=== PATIENT | female | born 1955 | race Caucasian/White ===

== ENCOUNTER 2020-02-12 17:05 | Emergency (ER) | payer MEDICARE, OTHER ==
[~2020-02-12] VITALS: Ht 157.5 cm; Wt 99.8 kg
[~2020-02-12 17:05] MED LIST: ALBUTEROL2.5 MG/0.5; CITALOPRAM HBR20 MG GT; COREG25 MG GT; CRESTOR5 MG GT; DIOVAN160 MG GT; LEVEMIR100 UNIT/1 SQ; METFORMIN HCL500 MG GT; NUVIGIL50 MG GT
== END 2020-02-12 18:57 | disposition home or self-care (01) ==
LOC: ER 17:15
DX: Z43.1 Encounter for attention to gastrostomy (principal); G81.94 Hemiplegia, unspecified affecting left nondominant side
CPT/HCPCS: 99282

== ENCOUNTER 2022-09-08 19:52 | Inpatient (IN) | payer MEDICARE, OTHER ==
[~2022-09-08] VITALS: Ht 157.5 cm; Wt 99.8 kg
[~2022-09-08 19:52] MED LIST changes: -ACETAMINOPHEN 1000 MG/100 ML 100 ML IV ONE; -CEFEPIME HCL 1 GM VIAL ONE; -DEXAMETHASONE SOD PHOS INJ 4 MG/ML SDV ONE; -DIFLUCAN200 MG PO; -DIPHENHYDRAMINE HCL INJ 50 MG/ML VIAL ONE; -FENTANYL CITRATE/PF 100MCG/2 ML INJ ONE; -KETOROLAC TROMETHAMINE 30 MG/ML VIAL ONE; -LEVEMIR100 UNIT/1; -LIDOCAINE HCL 2% LOCAL INJ 5 ML SDV VIAL INJ ONE; -NUVIGIL150 MG; -NUVIGIL150 MG GT; -ONDANSETRON HCL INJ 2MG/ML 2ML 2 MG/ML VIAL ONE; -POVIDONE IODINE 0.05% 0.05 % ML PO ONE; -PROPOFOL IV EMULSION 10 MG/ML 20 ML VIAL ONE; -SEVOFLURANE INHAL SOLN 250 ML PEN BTL ONE
[2022-09-08] MEDS ORDERED: SODIUM CHLORIDE 0.9% 1000ML 1,000 ML IV STA ×2 (19:54→20:34)
[2022-09-08] MEDS ORDERED: MEROPENEM 1 GM VIAL ONE (20:22)
[2022-09-08] MEDS ORDERED: SODIUM CHLORIDE 0.9% 1000ML 1,000 ML ONE ×2 (20:22→21:11)
[2022-09-08] MEDS ORDERED: SODIUM CHLORIDE 0.9% 100 ML ONE (20:22)
[2022-09-08 20:24] LABS: BASOPHILS # (AUTO) 0.1 (0.0-0.1); BASOPHILS % 0.4 % (0.0-1.0); EOSINOPHILS % 0.1 % (0.0-6.0); HEMOGLOBIN 11.5 g/dL (12.0-16.0); LYMPHOCYTES # (AUTO) 0.1 (1.0-3.2); LYMPHOCYTES % 0.5 % (18.0-39.1); MEAN CORPUSCULAR HEMOGLOBIN 27.9 pg (28-32); MEAN CORPUSCULAR HGB CONC 31.1 g/dL (31-35); MEAN CORPUSCULAR VOLUME 89.8 fL (81-99); MONOCYTES # (AUTO) 0.4 (0.2-0.8); MONOCYTES % 2.2 % (4.4-11.3); NEUTROPHILS # (AUTO) 16.5 (2.1-6.9); PLATELET COUNT 188 x10e3/uL (140-360); RED BLOOD COUNT 4.12 x10e6/uL (3.6-5.1)
[2022-09-08] MEDS: MEROPENEM 1 GM in SODIUM CHLORIDE 0.9% 100 ML IV SCH (20:26)
[2022-09-08 20:42] LABS: ALBUMIN 2.6 g/dL (3.5-5.0); ALBUMIN/GLOBULIN RATIO 0.7 (0.8-2.0); ANION GAP 14.3 mmol/L (8-16); CALCIUM 8.7 mg/dL (8.4-10.2); CREATININE, SERUM 0.78 mg/dL (0.57-1.11); POTASSIUM 4.3 mmol/L (3.5-5.1)
[2022-09-08] MEDS ORDERED: SODIUM CHLORIDE FLUSH 10 ML SYR INJ PRN (21:30)
[2022-09-08] MEDS ORDERED: ONDANSETRON HCL INJ 2MG/ML 2ML 2 MG/ML VIAL IV PRN (21:30)
[2022-09-08] MEDS ORDERED: NUVIGIL150 MG GT (23:14)
[2022-09-08 23:45] VITALS: PULSE 98; RESP 18; O2SAT 100
[2022-09-09] VITALS (12 sets, daily range): BP systolic 106–152; BP diastolic 56–64; PULSE 96–103; RESP 17–21; TEMP 97.4–102.7; O2SAT 94–100
[2022-09-09] MEDS ORDERED: RESTASIS1 EACH (03:52)
[2022-09-09] MEDS ORDERED: NUVIGIL150 MG (03:52)
[2022-09-09] MEDS ORDERED: LEVEMIR100 UNIT/1 (04:12)
[2022-09-09 05:34] LABS: BASOPHILS # (AUTO) 0.1 (0.0-0.1); BASOPHILS % 0.2 % (0.0-1.0); EOSINOPHILS # (AUTO) 0.3 (0.0-0.4); EOSINOPHILS % 1.2 % (0.0-6.0); HEMATOCRIT 35.3 % (34.2-44.1); HEMOGLOBIN 10.8 g/dL (12.0-16.0); LYMPHOCYTES # (AUTO) 0.4 (1.0-3.2); LYMPHOCYTES % 1.4 % (18.0-39.1); MEAN CORPUSCULAR HEMOGLOBIN 27.8 pg (28-32); MEAN CORPUSCULAR HGB CONC 30.6 g/dL (31-35); MEAN CORPUSCULAR VOLUME 90.7 fL (81-99); MONOCYTES # (AUTO) 1.2 (0.2-0.8); MONOCYTES % 4.5 % (4.4-11.3); NEUTROPHILS # (AUTO) 24.1 (2.1-6.9); NEUTROPHILS % 91.1 % (38.7-80.0); PLATELET COUNT 180 x10e3/uL (140-360); RED BLOOD COUNT 3.89 x10e6/uL (3.6-5.1); RED CELL DISTRIBUTION WIDTH 15.4 % (11.7-14.4)
[2022-09-09 06:05] LABS: ALBUMIN 2.3 g/dL (3.5-5.0); ALBUMIN/GLOBULIN RATIO 0.6 (0.8-2.0); ANION GAP 13.3 mmol/L (8-16); CALCIUM 8.2 mg/dL (8.4-10.2); CREATININE, SERUM 0.69 mg/dL (0.57-1.11); POTASSIUM 4.3 mmol/L (3.5-5.1)
[2022-09-09 06:44] LABS: CLARITY,URINE CLOUDY (CLEAR); COLOR,URINE AMBER (YELLOW); KETONES,URINE TRACE (NEGATIVE); LEUKOCYTE ESTERASE ,URINE TRACE (NEGATIVE); NITRITE,URINE NEGATIVE (NEGATIVE); PROTEIN,URINE DIPSTICK >=300 (NEGATIVE); URINE UROBILINOGEN 0.2 mg/dL (0.2 - 1)
[2022-09-09 07:16] LABS: BACTERIA,URINE RARE /HPF; EPITHELIAL CELLS,URINE RARE /LPF; RBC,URINE >50 /HPF (0-5)
[2022-09-09 07:46] LABS: BAND NEUTROPHILS % (MANUAL) 13 %; LYMPHOCYTES % (MANUAL) 1 % (19-48); METAMYELOCYTES % (MANUAL) 3 % (0-0); MONOCYTES % (MANUAL) 1 % (3.4-9.0); MYELOCYTES % (MANUAL) 1 % (0-0); NEUTROPHILS % (MANUAL) 81 % (40-74); PLATELET ESTIMATE ADEQUATE; PLATELET MORPHOLOGY COMMENT NORMAL; RBC MORPHOLOGY COMMENT NORMAL
[2022-09-09] MEDS: MEROPENEM 1 GM in SODIUM CHLORIDE 0.9% 100 ML IV SCH ×3 (09:12→23:17)
[2022-09-09] MEDS ORDERED: SODIUM CHLORIDE 0.9% 250ML 250 ML ONE (09:14)
[2022-09-09] MEDS: CITALOPRAM HYDROBROMIDE 20 MG TAB GT SCH (09:45)
[2022-09-09] MEDS: OXYBUTYNIN CHLORIDE 5 MG TAB PO SCH ×3 (09:45→23:08)
[2022-09-09] MEDS ORDERED: DEXTROSE 50% SYRINGE 50 ML IV PRN (11:15)
[2022-09-09] MEDS: ARMODAFINIL 150 MG TAB PO SCH (11:15)
[2022-09-09] MEDS: INSULIN LISPRO 100 UNIT/1 ML 3ML VIAL SQ SCH ×3 (11:33→23:14)
[2022-09-09] MEDS: LEVALBUTEROL HCL SOLN NEBU 0.63 MG/3 ML NEB INH SCH (19:20)
[2022-09-10] VITALS (15 sets, daily range): BP systolic 142–157; BP diastolic 55–82; PULSE 86–103; RESP 16–22; TEMP 98.1–102; O2SAT 94–99
[2022-09-10] MEDS: ACETAMINOPHEN 325 MG TAB PO PRN ×2 (00:28→14:20)
[2022-09-10] MEDS: LEVALBUTEROL HCL SOLN NEBU 0.63 MG/3 ML NEB INH SCH ×6 (01:45→23:20)
[2022-09-10] MEDS: MEROPENEM 1 GM in SODIUM CHLORIDE 0.9% 100 ML IV SCH ×3 (06:21→21:19)
[2022-09-10] MEDS: INSULIN LISPRO 100 UNIT/1 ML 3ML VIAL SQ SCH ×3 (06:30→18:21)
[2022-09-10] MEDS: CITALOPRAM HYDROBROMIDE 20 MG TAB GT SCH (09:23)
[2022-09-10] MEDS: ARMODAFINIL 150 MG TAB PO SCH (09:23)
[2022-09-10] MEDS: Morphine 2mg Syringe 2 MG/ML SYR IV PRN (09:27)
[2022-09-10] MEDS: SIMVASTATIN 20 MG TAB GT SCH (09:27)
[2022-09-10 11:18] LABS: BASOPHILS # (AUTO) 0.1 (0.0-0.1); BASOPHILS % 0.4 % (0.0-1.0); EOSINOPHILS # (AUTO) 0.2 (0.0-0.4); EOSINOPHILS % 1.6 % (0.0-6.0); HEMATOCRIT 33.7 % (34.2-44.1); HEMOGLOBIN 10.2 g/dL (12.0-16.0); LYMPHOCYTES # (AUTO) 0.9 (1.0-3.2); LYMPHOCYTES % 6.1 % (18.0-39.1); MEAN CORPUSCULAR HEMOGLOBIN 27.7 pg (28-32); MEAN CORPUSCULAR HGB CONC 30.3 g/dL (31-35); MEAN CORPUSCULAR VOLUME 91.6 fL (81-99); MONOCYTES # (AUTO) 0.9 (0.2-0.8); MONOCYTES % 6.1 % (4.4-11.3); NEUTROPHILS # (AUTO) 12.3 (2.1-6.9); NEUTROPHILS % 85.3 % (38.7-80.0); PLATELET COUNT 148 x10e3/uL (140-360); RED BLOOD COUNT 3.68 x10e6/uL (3.6-5.1); RED CELL DISTRIBUTION WIDTH 15.3 % (11.7-14.4)
[2022-09-10] MEDS: FLUCONAZOLE 100 MG/NS 50 ML 50 ML IV SCH (11:21)
[2022-09-10 11:42] LABS: ALBUMIN 2.1 g/dL (3.5-5.0); ALBUMIN/GLOBULIN RATIO 0.6 (0.8-2.0); ANION GAP 11.4 mmol/L (8-16); CALCIUM 8.4 mg/dL (8.4-10.2); CREATININE, SERUM 0.58 mg/dL (0.57-1.11); POTASSIUM 4.4 mmol/L (3.5-5.1)
[2022-09-10] MEDS: OXYBUTYNIN CHLORIDE 5 MG TAB PO SCH ×2 (14:20→21:18)
[2022-09-10] MEDS: ACETYLCYSTEINE 20% INHAL SOLN 30 ML VIAL INH SCH (19:42)
[2022-09-11] VITALS (13 sets, daily range): BP systolic 140–173; BP diastolic 59–81; PULSE 74–103; RESP 18–22; TEMP 98.7–100.4; O2SAT 95–100
[2022-09-11] MEDS: INSULIN LISPRO 100 UNIT/1 ML 3ML VIAL SQ SCH ×4 (00:57→18:00)
[2022-09-11] MEDS: LEVALBUTEROL HCL SOLN NEBU 0.63 MG/3 ML NEB INH SCH ×6 (02:55→23:10)
[2022-09-11] MEDS: MEROPENEM 1 GM in SODIUM CHLORIDE 0.9% 100 ML IV SCH ×2 (05:37→14:18)
[2022-09-11 06:13] LABS: BASOPHILS # (AUTO) 0.1 (0.0-0.1); BASOPHILS % 0.7 % (0.0-1.0); EOSINOPHILS # (AUTO) 0.2 (0.0-0.4); EOSINOPHILS % 1.9 % (0.0-6.0); HEMATOCRIT 33.2 % (34.2-44.1); HEMOGLOBIN 9.9 g/dL (12.0-16.0); LYMPHOCYTES # (AUTO) 1.2 (1.0-3.2); LYMPHOCYTES % 11.8 % (18.0-39.1); MEAN CORPUSCULAR HEMOGLOBIN 27.8 pg (28-32); MEAN CORPUSCULAR HGB CONC 29.8 g/dL (31-35); MEAN CORPUSCULAR VOLUME 93.3 fL (81-99); MONOCYTES # (AUTO) 0.6 (0.2-0.8); MONOCYTES % 6.3 % (4.4-11.3); NEUTROPHILS # (AUTO) 7.7 (2.1-6.9); NEUTROPHILS % 78.8 % (38.7-80.0); PLATELET COUNT 152 x10e3/uL (140-360); RED BLOOD COUNT 3.56 x10e6/uL (3.6-5.1); RED CELL DISTRIBUTION WIDTH 14.6 % (11.7-14.4)
[2022-09-11] MEDS: ACETYLCYSTEINE 20% INHAL SOLN 30 ML VIAL INH SCH ×2 (06:34→19:00)
[2022-09-11 06:39] LABS: ANION GAP 16.1 mmol/L (8-16); CALCIUM 8.4 mg/dL (8.4-10.2); CREATININE, SERUM 0.56 mg/dL (0.57-1.11); POTASSIUM 4.1 mmol/L (3.5-5.1)
[2022-09-11] MEDS ORDERED: ONDANSETRON HCL 4 MG ORAL DISINTEGRATING TAB PO PRN (09:00)
[2022-09-11] MEDS: SIMVASTATIN 20 MG TAB GT SCH (09:17)
[2022-09-11] MEDS: OXYBUTYNIN CHLORIDE 5 MG TAB PO SCH ×3 (09:17→21:30)
[2022-09-11] MEDS: ARMODAFINIL 150 MG TAB PO SCH (09:17)
[2022-09-11] MEDS: Morphine 2mg Syringe 2 MG/ML SYR IV PRN (09:28)
[2022-09-11] MEDS: FLUCONAZOLE 100 MG/NS 50 ML 50 ML IV SCH (14:18)
[2022-09-11] MEDS ORDERED: MICAFUNGIN SODIUM 100 MG IV SCH (15:45)
[2022-09-11] MEDS: MICAFUNGIN SODIUM 100 MG in SODIUM CHLORIDE 0.9% 100 ML IV SCH (17:59)
[2022-09-11] MEDS: HYDROCODONE/APAP 5MG-325MG TAB PO PRN (21:30)
[2022-09-12] VITALS (12 sets, daily range): BP systolic 103–150; BP diastolic 56–86; PULSE 72–81; RESP 18–20; TEMP 97.8–99.1; O2SAT 95–100
[2022-09-12] MEDS: INSULIN LISPRO 100 UNIT/1 ML 3ML VIAL SQ SCH ×4 (00:20→18:00)
[2022-09-12] MEDS: LEVALBUTEROL HCL SOLN NEBU 0.63 MG/3 ML NEB INH SCH ×6 (03:00→22:55)
[2022-09-12] MEDS: HYDROCODONE/APAP 5MG-325MG TAB PO PRN ×2 (07:17→15:45)
[2022-09-12] MEDS: ACETYLCYSTEINE 200 MG/ML 4ML VIAL INH SCH ×2 (08:37→18:45)
[2022-09-12] MEDS: SIMVASTATIN 20 MG TAB GT SCH (09:00)
[2022-09-12] MEDS: OXYBUTYNIN CHLORIDE 5 MG TAB PO SCH ×3 (09:00→21:00)
[2022-09-12] MEDS: CITALOPRAM HYDROBROMIDE 20 MG TAB GT SCH (09:00)
[2022-09-12] MEDS: ARMODAFINIL 150 MG TAB PO SCH (09:00)
[2022-09-12] MEDS: MICAFUNGIN SODIUM 100 MG in SODIUM CHLORIDE 0.9% 100 ML IV SCH (18:06)
[2022-09-13] VITALS (10 sets, daily range): BP systolic 155–169; BP diastolic 65–71; PULSE 71–90; RESP 18–22; TEMP 97.4–99; O2SAT 88–99
[2022-09-13] MEDS: LEVALBUTEROL HCL SOLN NEBU 0.63 MG/3 ML NEB INH SCH ×4 (02:40→15:47)
[2022-09-13] MEDS: INSULIN LISPRO 100 UNIT/1 ML 3ML VIAL SQ SCH ×3 (06:24→12:19)
[2022-09-13] MEDS: ACETYLCYSTEINE 200 MG/ML 4ML VIAL INH SCH (06:52)
[2022-09-13] MEDS: ARMODAFINIL 150 MG TAB PO SCH (09:46)
[2022-09-13] MEDS: CITALOPRAM HYDROBROMIDE 20 MG TAB GT SCH (09:46)
[2022-09-13] MEDS: SIMVASTATIN 20 MG TAB GT SCH (09:46)
[2022-09-13] MEDS: OXYBUTYNIN CHLORIDE 5 MG TAB PO SCH ×2 (09:47→15:21)
[2022-09-13] MEDS: HYDROCODONE/APAP 5MG-325MG TAB PO PRN (10:14)
[2022-09-13] MEDS ORDERED: DIFLUCAN200 MG PO (14:08)
[2022-09-13] MEDS ORDERED: FLUCONAZOLE 400MG/200ML BAG 200 ML IV SCH (14:30)
[2022-09-13] MEDS ORDERED: FLUCONAZOLE 100 MG TAB PO ONE (15:45)
[2022-09-14] MEDS ORDERED: FLUCONAZOLE 100 MG TAB PO SCH (09:00)
== END 2022-09-13 17:03 | disposition home or self-care (01) | DRG 872 ==
LOC: ER 19:55 → ERHOLD 21:19 → MED/SURG2 23:42
PROVIDERS: ADMIT Internal Medicine; ATTEND Internal Medicine
DX: A41.9 Sepsis, unspecified organism (principal); N39.0 Urinary tract infection, site not specified; B49 Unspecified mycosis; Z68.41 Body mass index [BMI] 40.0-44.9, adult; I69.354 Hemiplegia and hemiparesis following cerebral infarction affecting left non-dominant side; R65.20 Severe sepsis without septic shock; I51.7 Cardiomegaly; K56.41 Fecal impaction; R09.02 Hypoxemia; B96.89 Other specified bacterial agents as the cause of diseases classified elsewhere; E66.01 Morbid (severe) obesity due to excess calories; E78.00 Pure hypercholesterolemia, unspecified; I69.122 Dysarthria following nontraumatic intracerebral hemorrhage; I69.398 Other sequelae of cerebral infarction; F44.4 Conversion disorder with motor symptom or deficit; E11.65 Type 2 diabetes mellitus with hyperglycemia; I69.322 Dysarthria following cerebral infarction; E11.69 Type 2 diabetes mellitus with other specified complication; R13.10 Dysphagia, unspecified; F32.A Depression, unspecified; Z88.0 Allergy status to penicillin; Z20.822 Contact with and (suspected) exposure to COVID-19; Z88.2 Allergy status to sulfonamides; Z74.01 Bed confinement status; Z99.3 Dependence on wheelchair; Z79.4 Long term (current) use of insulin; Z93.1 Gastrostomy status
CPT/HCPCS: 36415; 71045; 74018; 74176; 80048; 80053; 81001; 82550; 82553; 82948; 83036; 83605; 83880; 84484; 85025; 87040; 87071; 87205; 93005; 93306; 94799; 96372; 99252; 99284; J1450; J2185; J2248; J2270; J7030; J7050

== ENCOUNTER → 2022-09-08 | Day surgery (SDC) | payer MEDICARE ==
[~2022-09-08] MED LIST changes: +ACETAMINOPHEN 1000 MG/100 ML 100 ML IV ONE; +ACETYLCYST200 MG/1 M NEB; +AMLODIPINE BESY10 MG PO; +CEFEPIME HCL 1 GM VIAL ONE; +COMBIVENT RESPIM4 GM IH; +DEXAMETHASONE SOD PHOS INJ 4 MG/ML SDV ONE; +DIFLUCAN200 MG PO; +DIPHENHYDRAMINE HCL INJ 50 MG/ML VIAL ONE; +DOXAZOSIN MESYLA2 MG PO; +FENTANYL CITRATE/PF 100MCG/2 ML INJ ONE; +KETOROLAC TROMETHAMINE 30 MG/ML VIAL ONE; +LANSOPRAZOLE15 MG PO; +LEVEMIR100 UNIT/1; +LIDOCAINE HCL 2% LOCAL INJ 5 ML SDV VIAL INJ ONE; +METFORMIN HCL500 M2 PO; +NUVIGIL150 MG; +NUVIGIL150 MG GT; +ONDANSETRON HCL INJ 2MG/ML 2ML 2 MG/ML VIAL ONE; +OXYBUTYNIN CHLOR5 MG PO; +POVIDONE IODINE 0.05% 0.05 % ML PO ONE; +PROPOFOL IV EMULSION 10 MG/ML 20 ML VIAL ONE; +RESTASIS1 EACH; +ROSTASIS; +SEVOFLURANE INHAL SOLN 250 ML PEN BTL ONE
[2022-09-08 08:20] LABS: BASOPHILS # (AUTO) 0.1 (0.0-0.1); BASOPHILS % 0.9 % (0.0-1.0); EOSINOPHILS # (AUTO) 0.3 (0.0-0.4); HEMATOCRIT 37.6 % (34.2-44.1); HEMOGLOBIN 11.9 g/dL (12.0-16.0); LYMPHOCYTES # (AUTO) 1.1 (1.0-3.2); LYMPHOCYTES % 15.5 % (18.0-39.1); MEAN CORPUSCULAR HEMOGLOBIN 28.1 pg (28-32); MEAN CORPUSCULAR HGB CONC 31.6 g/dL (31-35); MEAN CORPUSCULAR VOLUME 88.9 fL (81-99); MONOCYTES # (AUTO) 0.5 (0.2-0.8); MONOCYTES % 7.8 % (4.4-11.3); NEUTROPHILS # (AUTO) 4.9 (2.1-6.9); NEUTROPHILS % 71.5 % (38.7-80.0); PLATELET COUNT 211 x10e3/uL (140-360); RED BLOOD COUNT 4.23 x10e6/uL (3.6-5.1); RED CELL DISTRIBUTION WIDTH 14.6 % (11.7-14.4)
[2022-09-08 08:51] LABS: ANION GAP 13.3 mmol/L (8-16); CALCIUM 9.2 mg/dL (8.4-10.2); CREATININE, SERUM 0.66 mg/dL (0.57-1.11); POTASSIUM 4.3 mmol/L (3.5-5.1)
[2022-09-08 13:55] VITALS: BP 128/72; PULSE 79; RESP 16; O2SAT 95
== END | disposition home or self-care (01) ==
LOC: OR 07:27
PROVIDERS: ATTEND Urology
DX: N20.0 Calculus of kidney (principal); N39.0 Urinary tract infection, site not specified; Z43.5 Encounter for attention to cystostomy; N13.5 Crossing vessel and stricture of ureter without hydronephrosis; N21.0 Calculus in bladder; N36.8 Other specified disorders of urethra; N81.10 Cystocele, unspecified; N81.6 Rectocele; N95.2 Postmenopausal atrophic vaginitis; J44.9 Chronic obstructive pulmonary disease, unspecified; I10 Essential (primary) hypertension; E11.9 Type 2 diabetes mellitus without complications; K21.9 Gastro-esophageal reflux disease without esophagitis; M19.90 Unspecified osteoarthritis, unspecified site; Z88.0 Allergy status to penicillin; Z88.2 Allergy status to sulfonamides; Z79.84 Long term (current) use of oral hypoglycemic drugs; Z79.4 Long term (current) use of insulin; Z79.899 Other long term (current) drug therapy; Z86.73 Personal history of transient ischemic attack (TIA), and cerebral infarction without residual deficits
CPT/HCPCS: 36415; 51705; 52317; 52356; 71046; 74018; 74420; 80048; 82948; 83970; 84550; 85025; 87086; 87186; 93005; C1758; C1769; C2617; J0131; J0692; J1100; J1885; J2001; J2405; J2704; J3010; J1200

== ENCOUNTER 2022-09-29 10:20 | Inpatient (IN) | payer MEDICARE, OTHER ==
[~2022-09-29] VITALS: Ht 157.5 cm; Wt 99.8 kg
[~2022-09-29 10:20] MED LIST changes: +DIFLUCAN200 MG PO; +LEVEMIR100 UNIT/1; +NUVIGIL150 MG; +NUVIGIL150 MG GT; +ONDANSETRON HCL INJ 2MG/ML 2ML 2 MG/ML VIAL ONE
[2022-09-29] MEDS ORDERED: SEVOFLURANE INHAL SOLN 250 ML PEN BTL ONE (10:31)
[2022-09-29] MEDS ORDERED: PROPOFOL IV EMULSION 10 MG/ML 20 ML VIAL ONE (10:31)
[2022-09-29] MEDS ORDERED: LIDOCAINE HCL 2% LOCAL INJ 5 ML SDV VIAL INJ ONE (10:31)
[2022-09-29] MEDS ORDERED: POVIDONE IODINE 0.05% 0.05 % ML PO ONE (10:31)
[2022-09-29 11:02] LABS: BASOPHILS % 0.5 % (0.0-1.0); EOSINOPHILS # (AUTO) 0.2 (0.0-0.4); HEMOGLOBIN 11.9 g/dL (12.0-16.0); LYMPHOCYTES % 13.3 % (18.0-39.1); MEAN CORPUSCULAR HEMOGLOBIN 27.8 pg (28-32); MEAN CORPUSCULAR HGB CONC 31.3 g/dL (31-35); MEAN CORPUSCULAR VOLUME 88.8 fL (81-99); MONOCYTES # (AUTO) 0.6 (0.2-0.8); MONOCYTES % 7.8 % (4.4-11.3); NEUTROPHILS # (AUTO) 5.5 (2.1-6.9); NEUTROPHILS % 75.1 % (38.7-80.0); PLATELET COUNT 265 x10e3/uL (140-360); RED BLOOD COUNT 4.28 x10e6/uL (3.6-5.1); RED CELL DISTRIBUTION WIDTH 15.5 % (11.7-14.4)
[2022-09-29 11:25] LABS: ANION GAP 15.8 mmol/L (8-16); CREATININE, SERUM 0.63 mg/dL (0.57-1.11); POTASSIUM 4.8 mmol/L (3.5-5.1)
[2022-09-29] MEDS ORDERED: MEROPENEM 1 GM VIAL ONE (12:06)
[2022-09-29] MEDS ORDERED: LACTATED RINGER'S 1,000 ML ONE (12:07)
[2022-09-29] MEDS ORDERED: IOPAMIDOL 610MG/1ML 300 MG/ML VIAL IV ONE (13:33)
[2022-09-29] MEDS ORDERED: DIPHENHYDRAMINE HCL INJ 50 MG/ML VIAL IM PRN (13:45)
[2022-09-29] MEDS ORDERED: ONDANSETRON HCL INJ 2MG/ML 2ML 2 MG/ML VIAL IV PRN (13:45)
[2022-09-29 15:48] VITALS: BP 126/76; PULSE 88; RESP 20; TEMP 99.2; O2SAT 95
[2022-09-29 15:56] VITALS: BP 149/79; PULSE 70; RESP 18; TEMP 98.3; O2SAT 99
[2022-09-29] MEDS: SODIUM CHLORIDE 0.9% 1000ML 1,000 ML IV SCH (17:24)
[2022-09-29] MEDS: FLUCONAZOLE 200 MG/100 ML 100 ML IV SCH (17:24)
[2022-09-29] MEDS ORDERED: ACETAMINOPHEN 1000 MG/100 ML IV PRN (18:00)
[2022-09-29] MEDS ORDERED: IPRATROPIUM/ALBUTEROL SULFATE 4 GM INH INH SCH (19:00)
[2022-09-29 20:00] VITALS: BP_SYST 150; BP_DIAS 80; BP_DIAS 85; PULSE 80; RESP 16; RESP 20; TEMP 98.8; O2SAT 100
[2022-09-29 21:00] VITALS: BP 150/85; PULSE 80; RESP 16; TEMP 98.8; O2SAT 100
[2022-09-29] MEDS: MEROPENEM 1 GM in SODIUM CHLORIDE 0.9% 100 ML IV SCH (21:37)
[2022-09-30] VITALS (13 sets, daily range): BP systolic 127–169; BP diastolic 63–72; PULSE 72–88; RESP 16–20; TEMP 97–99.9; O2SAT 92–100
[2022-09-30] MEDS ORDERED: PANTOPRAZOLE SOD 40 MG TABEC PO SCH (07:30)
[2022-09-30] MEDS: CITALOPRAM HYDROBROMIDE 20 MG TAB GT SCH (08:21)
[2022-09-30] MEDS: DOXAZOSIN MESYLATE 2 MG TAB PO SCH (08:21)
[2022-09-30] MEDS: CARVEDILOL 12.5 MG TAB GT SCH (08:21)
[2022-09-30] MEDS: VALSARTAN 160 MG TAB GT SCH ×2 (08:22→17:09)
[2022-09-30] MEDS: SODIUM CHLORIDE 0.9% 1000ML 1,000 ML IV SCH (08:22)
[2022-09-30] MEDS: MEROPENEM 1 GM in SODIUM CHLORIDE 0.9% 100 ML IV SCH ×2 (08:22→21:10)
[2022-09-30] MEDS: AMLODIPINE BESYLATE 10 MG TAB PO SCH (08:29)
[2022-09-30] MEDS ORDERED: SIMVASTATIN 20 MG TAB GT SCH (09:00)
[2022-09-30] MEDS: ACETYLCYSTEINE 200 MG/ML 4ML VIAL INH SCH ×2 (09:05→18:19)
[2022-09-30] MEDS: ALBUTEROL/IPRATROPIUM 3 ML NEB NEB SCH ×4 (09:05→22:20)
[2022-09-30] MEDS ORDERED: DEXTROSE 50% SYRINGE 50 ML IV PRN (09:15)
[2022-09-30] MEDS: ARMODAFINIL 150 MG TAB PO SCH (11:00)
[2022-09-30] MEDS: INSULIN LISPRO 100 UNIT/1 ML 3ML VIAL SQ SCH ×3 (12:38→21:34)
[2022-09-30 14:22] LABS: BASOPHILS % 0.6 % (0.0-1.0); EOSINOPHILS # (AUTO) 0.2 (0.0-0.4); EOSINOPHILS % 3.5 % (0.0-6.0); HEMATOCRIT 34.3 % (34.2-44.1); HEMOGLOBIN 10.8 g/dL (12.0-16.0); LYMPHOCYTES % 14.8 % (18.0-39.1); MEAN CORPUSCULAR HEMOGLOBIN 28.3 pg (28-32); MEAN CORPUSCULAR HGB CONC 31.5 g/dL (31-35); MEAN CORPUSCULAR VOLUME 89.8 fL (81-99); MONOCYTES # (AUTO) 0.5 (0.2-0.8); MONOCYTES % 8.2 % (4.4-11.3); NEUTROPHILS # (AUTO) 4.8 (2.1-6.9); NEUTROPHILS % 72.6 % (38.7-80.0); PLATELET COUNT 223 x10e3/uL (140-360); RED BLOOD COUNT 3.82 x10e6/uL (3.6-5.1); RED CELL DISTRIBUTION WIDTH 15.7 % (11.7-14.4)
[2022-09-30 14:42] LABS: ANION GAP 12.4 mmol/L (8-16); CALCIUM 8.6 mg/dL (8.4-10.2); CREATININE, SERUM 0.63 mg/dL (0.57-1.11); POTASSIUM 4.4 mmol/L (3.5-5.1)
[2022-09-30] MEDS: FLUCONAZOLE 200 MG/100 ML 100 ML IV SCH (17:09)
[2022-10-01] VITALS (11 sets, daily range): BP systolic 132–184; BP diastolic 53–90; PULSE 70–92; RESP 16–20; TEMP 97.7–98.8; O2SAT 92–99
[2022-10-01] MEDS: SODIUM CHLORIDE 0.9% 1000ML 1,000 ML IV SCH (05:59)
[2022-10-01] MEDS: ALBUTEROL/IPRATROPIUM 3 ML NEB NEB SCH ×3 (07:23→18:30)
[2022-10-01] MEDS: ACETYLCYSTEINE 200 MG/ML 4ML VIAL INH SCH ×2 (07:23→18:30)
[2022-10-01] MEDS: INSULIN LISPRO 100 UNIT/1 ML 3ML VIAL SQ SCH ×4 (08:14→20:33)
[2022-10-01] MEDS: CARVEDILOL 12.5 MG TAB GT SCH (08:17)
[2022-10-01] MEDS: VALSARTAN 160 MG TAB GT SCH ×2 (08:17→16:52)
[2022-10-01] MEDS: ARMODAFINIL 150 MG TAB PO SCH (08:17)
[2022-10-01] MEDS: AMLODIPINE BESYLATE 10 MG TAB PO SCH (08:18)
[2022-10-01] MEDS: DOXAZOSIN MESYLATE 2 MG TAB PO SCH (08:18)
[2022-10-01] MEDS: CITALOPRAM HYDROBROMIDE 20 MG TAB GT SCH (08:18)
[2022-10-01] MEDS: MEROPENEM 1 GM in SODIUM CHLORIDE 0.9% 100 ML IV SCH ×2 (08:19→21:18)
[2022-10-01 13:14] LABS: BASOPHILS # (AUTO) 0.1 (0.0-0.1); BASOPHILS % 0.8 % (0.0-1.0); EOSINOPHILS # (AUTO) 0.3 (0.0-0.4); EOSINOPHILS % 4.5 % (0.0-6.0); HEMATOCRIT 33.7 % (34.2-44.1); HEMOGLOBIN 10.3 g/dL (12.0-16.0); LYMPHOCYTES # (AUTO) 1.2 (1.0-3.2); LYMPHOCYTES % 19.2 % (18.0-39.1); MEAN CORPUSCULAR HGB CONC 30.6 g/dL (31-35); MEAN CORPUSCULAR VOLUME 91.6 fL (81-99); MONOCYTES # (AUTO) 0.4 (0.2-0.8); MONOCYTES % 6.6 % (4.4-11.3); NEUTROPHILS # (AUTO) 4.4 (2.1-6.9); NEUTROPHILS % 68.7 % (38.7-80.0); PLATELET COUNT 237 x10e3/uL (140-360); RED BLOOD COUNT 3.68 x10e6/uL (3.6-5.1); RED CELL DISTRIBUTION WIDTH 15.5 % (11.7-14.4)
[2022-10-01 13:29] LABS: ANION GAP 12.5 mmol/L (8-16); CALCIUM 8.6 mg/dL (8.4-10.2); CREATININE, SERUM 0.58 mg/dL (0.57-1.11); POTASSIUM 4.5 mmol/L (3.5-5.1)
[2022-10-01] MEDS: LINEZOLID 600 MG/D5W 300ML 300 ML IV SCH (14:00)
[2022-10-01] MEDS: METFORMIN HCL 500 MG TAB PEG SCH (16:53)
[2022-10-01] MEDS: FLUCONAZOLE 200 MG/100 ML 100 ML IV SCH (16:56)
[2022-10-01] MEDS ORDERED: METFORMIN HCL 750 MG TAB ER PO SCH (17:00)
[2022-10-02] VITALS (11 sets, daily range): BP systolic 134–163; BP diastolic 66–70; PULSE 64–73; RESP 15–20; TEMP 97.9–98.5; O2SAT 94–100
[2022-10-02] MEDS: ALBUTEROL/IPRATROPIUM 3 ML NEB NEB SCH ×4 (00:20→19:20)
[2022-10-02] MEDS: LINEZOLID 600 MG/D5W 300ML 300 ML IV SCH ×2 (01:20→12:40)
[2022-10-02] MEDS: SODIUM CHLORIDE 0.9% 1000ML 1,000 ML IV SCH (02:29)
[2022-10-02 05:40] LABS: BASOPHILS % 0.8 % (0.0-1.0); EOSINOPHILS # (AUTO) 0.2 (0.0-0.4); EOSINOPHILS % 4.8 % (0.0-6.0); HEMATOCRIT 32.9 % (34.2-44.1); LYMPHOCYTES # (AUTO) 1.1 (1.0-3.2); LYMPHOCYTES % 22.9 % (18.0-39.1); MEAN CORPUSCULAR HEMOGLOBIN 28.2 pg (28-32); MEAN CORPUSCULAR HGB CONC 30.4 g/dL (31-35); MEAN CORPUSCULAR VOLUME 92.7 fL (81-99); MONOCYTES # (AUTO) 0.4 (0.2-0.8); MONOCYTES % 8.6 % (4.4-11.3); NEUTROPHILS % 62.7 % (38.7-80.0); PLATELET COUNT 213 x10e3/uL (140-360); RED BLOOD COUNT 3.55 x10e6/uL (3.6-5.1)
[2022-10-02 06:08] LABS: ANION GAP 12.3 mmol/L (8-16); CALCIUM 8.2 mg/dL (8.4-10.2); CREATININE, SERUM 0.54 mg/dL (0.57-1.11); POTASSIUM 4.3 mmol/L (3.5-5.1)
[2022-10-02] MEDS: ACETYLCYSTEINE 200 MG/ML 4ML VIAL INH SCH ×2 (06:30→19:20)
[2022-10-02] MEDS: MEROPENEM 1 GM in SODIUM CHLORIDE 0.9% 100 ML IV SCH ×2 (08:24→21:02)
[2022-10-02] MEDS: DOXAZOSIN MESYLATE 2 MG TAB PO SCH (08:25)
[2022-10-02] MEDS: CITALOPRAM HYDROBROMIDE 20 MG TAB GT SCH (08:25)
[2022-10-02] MEDS: METFORMIN HCL 500 MG TAB PEG SCH ×2 (08:25→16:49)
[2022-10-02] MEDS: ARMODAFINIL 150 MG TAB PO SCH (08:26)
[2022-10-02] MEDS: AMLODIPINE BESYLATE 10 MG TAB PO SCH (08:26)
[2022-10-02] MEDS: CARVEDILOL 12.5 MG TAB GT SCH (08:26)
[2022-10-02] MEDS: VALSARTAN 160 MG TAB GT SCH ×2 (08:27→16:47)
[2022-10-02] MEDS: INSULIN LISPRO 100 UNIT/1 ML 3ML VIAL SQ SCH ×4 (09:21→21:10)
[2022-10-02] MEDS ORDERED: ONDANSETRON HCL 4 MG ORAL DISINTEGRATING TAB PO PRN (11:45)
[2022-10-02] MEDS ORDERED: HYDROCODONE/APAP 5MG-325MG TAB PO PRN (12:00)
[2022-10-02] MEDS ORDERED: DEXTROSE 50% SYRINGE 50 ML IV PRN (14:45)
[2022-10-02] MEDS ORDERED: FLUCONAZOLE 100 MG TAB PO SCH (17:00)
[2022-10-03] VITALS (9 sets, daily range): BP systolic 126–156; BP diastolic 59–72; PULSE 65–82; RESP 16–20; TEMP 98–98.2; O2SAT 93–100
[2022-10-03] MEDS: ALBUTEROL/IPRATROPIUM 3 ML NEB NEB SCH ×3 (00:15→14:00)
[2022-10-03] MEDS: SODIUM CHLORIDE 0.9% 1000ML 1,000 ML IV SCH (05:16)
[2022-10-03 05:33] LABS: ANION GAP 14.8 mmol/L (8-16); CALCIUM 8.3 mg/dL (8.4-10.2); CREATININE, SERUM 0.53 mg/dL (0.57-1.11); POTASSIUM 4.8 mmol/L (3.5-5.1)
[2022-10-03] MEDS: ACETYLCYSTEINE 200 MG/ML 4ML VIAL INH SCH (06:20)
[2022-10-03 06:27] LABS: BASOPHILS % 0.9 % (0.0-1.0); EOSINOPHILS # (AUTO) 0.3 (0.0-0.4); EOSINOPHILS % 6.4 % (0.0-6.0); HEMATOCRIT 32.6 % (34.2-44.1); HEMOGLOBIN 10.2 g/dL (12.0-16.0); LYMPHOCYTES # (AUTO) 1.1 (1.0-3.2); LYMPHOCYTES % 23.6 % (18.0-39.1); MEAN CORPUSCULAR HEMOGLOBIN 27.9 pg (28-32); MEAN CORPUSCULAR HGB CONC 31.3 g/dL (31-35); MEAN CORPUSCULAR VOLUME 89.3 fL (81-99); MONOCYTES # (AUTO) 0.4 (0.2-0.8); MONOCYTES % 8.8 % (4.4-11.3); NEUTROPHILS # (AUTO) 2.8 (2.1-6.9); NEUTROPHILS % 60.1 % (38.7-80.0); PLATELET COUNT 199 x10e3/uL (140-360); RED BLOOD COUNT 3.65 x10e6/uL (3.6-5.1); RED CELL DISTRIBUTION WIDTH 14.9 % (11.7-14.4)
[2022-10-03] MEDS: INSULIN LISPRO 100 UNIT/1 ML 3ML VIAL SQ SCH ×2 (08:22→11:41)
[2022-10-03] MEDS: MEROPENEM 1 GM in SODIUM CHLORIDE 0.9% 100 ML IV SCH (08:27)
[2022-10-03] MEDS: DOXAZOSIN MESYLATE 2 MG TAB PO SCH (08:29)
[2022-10-03] MEDS: VALSARTAN 160 MG TAB GT SCH (08:29)
[2022-10-03] MEDS: ARMODAFINIL 150 MG TAB PO SCH (08:29)
[2022-10-03] MEDS: CITALOPRAM HYDROBROMIDE 20 MG TAB GT SCH (08:29)
[2022-10-03] MEDS: CARVEDILOL 12.5 MG TAB GT SCH (08:30)
[2022-10-03] MEDS: AMLODIPINE BESYLATE 10 MG TAB PO SCH (08:30)
[2022-10-03] MEDS: METFORMIN HCL 500 MG TAB PEG SCH (08:31)
[2022-10-03] MEDS ORDERED: NITROFURANTOIN MACROCRYSTALS 100 MG CAP PO SCH (17:00)
== END 2022-10-03 16:44 | disposition home or self-care (01) | DRG 699 ==
LOC: OR 10:20 → PACU V 13:42 → MED/SURG2 15:32
PROVIDERS: ADMIT Internal Medicine; ATTEND Internal Medicine
PROC: 0TP98DZ Removal of Intraluminal Device from Ureter, Via Natural or Artificial Opening Endoscopic (ICD-10-PCS; 2022-09-29)
PROC: 0TC08ZZ Extirpation of Matter from Right Kidney, Via Natural or Artificial Opening Endoscopic (ICD-10-PCS; 2022-09-29)
PROC: BT1BZZZ Fluoroscopy of Bladder and Urethra (ICD-10-PCS; 2022-09-29)
PROC: BT1DZZZ Fluoroscopy of Right Kidney, Ureter and Bladder (ICD-10-PCS; 2022-09-29)
PROC: 0T2BX0Z Change Drainage Device in Bladder, External Approach (ICD-10-PCS; principal; 2022-09-29 13:34)
DX: T83.518A Infection and inflammatory reaction due to other urinary catheter, initial encounter (principal); I69.154 Hemiplegia and hemiparesis following nontraumatic intracerebral hemorrhage affecting left non-dominant side; N39.0 Urinary tract infection, site not specified; Z16.12 Extended spectrum beta lactamase (ESBL) resistance; Z68.41 Body mass index [BMI] 40.0-44.9, adult; Y73.8 Miscellaneous gastroenterology and urology devices associated with adverse incidents, not elsewhere classified; N81.10 Cystocele, unspecified; N36.8 Other specified disorders of urethra; Y92.89 Other specified places as the place of occurrence of the external cause; B95.2 Enterococcus as the cause of diseases classified elsewhere; E66.01 Morbid (severe) obesity due to excess calories; B96.20 Unspecified Escherichia coli [E. coli] as the cause of diseases classified elsewhere; N20.0 Calculus of kidney; E78.5 Hyperlipidemia, unspecified; E11.65 Type 2 diabetes mellitus with hyperglycemia; R13.10 Dysphagia, unspecified; N95.2 Postmenopausal atrophic vaginitis; R53.81 Other malaise; R33.8 Other retention of urine; D64.9 Anemia, unspecified; F32.A Depression, unspecified; Z87.891 Personal history of nicotine dependence; Z88.1 Allergy status to other antibiotic agents; Z88.0 Allergy status to penicillin; Z88.2 Allergy status to sulfonamides; Z93.1 Gastrostomy status; Z79.4 Long term (current) use of insulin; Z74.01 Bed confinement status
CPT/HCPCS: 36415; 74018; 74420; 80048; 82948; 84550; 85025; 87086; 87186; 88300; 94640; 94664; 94799; 96361; 96372; C1766; C1769; J1450; J2001; J2020; J2185; J2405; J7030; J7050

== ENCOUNTER 2024-03-18 10:31 | Inpatient (IN) | payer MEDICARE ==
[~2024-03-18] VITALS: Ht 157.5 cm; Wt 99.8 kg
[~2024-03-18 10:31] MED LIST changes: +ACETAMINOP325 MG/10 PEG; +HIPREX1 GM PO; +JARDIANCE25 MG; +MODAFINIL200 MG PO; -ONDANSETRON HCL INJ 2MG/ML 2ML 2 MG/ML VIAL ONE; +ONDANSETRON ODT4 MG PO
[2024-03-18 11:42] LABS: BASOPHILS % 0.6 % (0.0-1.0); EOSINOPHILS # (AUTO) 0.3 (0.0-0.4); EOSINOPHILS % 4.3 % (0.0-6.0); HEMATOCRIT 36.8 % (34.2-44.1); HEMOGLOBIN 10.8 g/dL (12.0-16.0); LYMPHOCYTES % 15.3 % (18.0-39.1); MEAN CORPUSCULAR HEMOGLOBIN 26.9 pg (28-32); MEAN CORPUSCULAR HGB CONC 29.3 g/dL (31-35); MEAN CORPUSCULAR VOLUME 91.8 fL (81-99); MONOCYTES # (AUTO) 0.5 (0.2-0.8); MONOCYTES % 7.3 % (4.4-11.3); NEUTROPHILS # (AUTO) 4.5 (2.1-6.9); NEUTROPHILS % 72.3 % (38.7-80.0); PLATELET COUNT 148 x10e3/uL (140-360); RED BLOOD COUNT 4.01 x10e6/uL (3.6-5.1); RED CELL DISTRIBUTION WIDTH 16.3 % (11.7-14.4); WHITE BLOOD COUNT 6.27 x10e3/uL (4.8-10.8)
[2024-03-18 12:00] LABS: INR 0.92; PROTHROMBIN TIME 12.9 seconds (11.9-14.5)
[2024-03-18 12:01] LABS: PARTIAL THROMBOPLASTIN TIME 26.9 seconds (23.8-35.5)
[2024-03-18 12:02] LABS: CLARITY,URINE CLOUDY (CLEAR); COLOR,URINE YELLOW (YELLOW); PH,URINE 7 (5 - 7)
[2024-03-18 12:03] LABS: BILIRUBIN,URINE NEGATIVE (NEGATIVE); GLUCOSE, URINE 500 (NEGATIVE); KETONES,URINE NEGATIVE (NEGATIVE); LEUKOCYTE ESTERASE ,URINE SMALL (NEGATIVE); NITRITE,URINE NEGATIVE (NEGATIVE); PROTEIN,URINE DIPSTICK >=300 (NEGATIVE); URINE UROBILINOGEN 0.2 mg/dL (0.2 - 1)
[2024-03-18 12:08] LABS: ALBUMIN 2.9 g/dL (3.5-5.0); ALBUMIN/GLOBULIN RATIO 0.7 (0.8-2.0); ANION GAP 13.2 mmol/L (8-16); BILIRUBIN,TOTAL 0.2 mg/dL (0.2-1.2); CALCIUM 9.2 mg/dL (8.4-10.2); CREATININE, SERUM 0.6 mg/dL (0.57-1.11); MAGNESIUM 1.9 MG/DL (1.3-2.1); POTASSIUM 4.2 mmol/L (3.5-5.1); TOTAL PROTEIN 6.9 g/dL (6.5-8.1)
[2024-03-18 12:14] LABS: TROPONIN I 0.011 ng/mL (0-0.300)
[2024-03-18] MEDS: MEROPENEM 1 GM in SODIUM CHLORIDE 0.9% 100 ML IV SCH (12:24)
[2024-03-18 12:33] LABS: WBC,URINE (MAN) 21-50 /HPF (0-5)
[2024-03-18 12:34] LABS: BACTERIA,URINE FEW /HPF; EPITHELIAL CELLS,URINE FEW /LPF; YEAST,URINE RARE
[2024-03-18] MEDS: LINEZOLID 600 MG/D5W 300ML 300 ML IV SCH (13:39)
[2024-03-18 14:13] VITALS: PULSE 76; RESP 18; TEMP 98.6
[2024-03-18] MEDS: Morphine 2mg Syringe 2 MG/ML SYR IV STA (16:09)
[2024-03-18 17:32] VITALS: BP 138/54; PULSE 66; RESP 20; TEMP 98.6; O2SAT 96
[2024-03-18] MEDS: SODIUM CHLORIDE 0.9% 1000ML 1,000 ML IV SCH (17:44)
[2024-03-18] MEDS: ONDANSETRON HCL INJ 2MG/ML 2ML 2 MG/ML VIAL IV STA (19:53)
[2024-03-18 20:00] VITALS: BP 138/57; PULSE 68; RESP 18; TEMP 98.6; O2SAT 98
[2024-03-18 21:00] VITALS: BP 138/57; PULSE 68; RESP 18; TEMP 98.6; O2SAT 98
[2024-03-18] MEDS: ONDANSETRON HCL INJ 2MG/ML 2ML 2 MG/ML VIAL IV PRN (23:27)
[2024-03-18] MEDS: Morphine 2mg Syringe 2 MG/ML SYR IV PRN (23:28)
[2024-03-19] VITALS (10 sets, daily range): BP systolic 104–141; BP diastolic 46–62; PULSE 56–81; RESP 18–20; TEMP 97.7–98.5; O2SAT 95–100
[2024-03-19 05:42] LABS: BASOPHILS % 0.8 % (0.0-1.0); EOSINOPHILS # (AUTO) 0.3 (0.0-0.4); EOSINOPHILS % 6.1 % (0.0-6.0); HEMATOCRIT 34.4 % (34.2-44.1); HEMOGLOBIN 10.4 g/dL (12.0-16.0); LYMPHOCYTES % 18.4 % (18.0-39.1); MEAN CORPUSCULAR HEMOGLOBIN 27.2 pg (28-32); MEAN CORPUSCULAR HGB CONC 30.2 g/dL (31-35); MEAN CORPUSCULAR VOLUME 89.8 fL (81-99); MONOCYTES # (AUTO) 0.5 (0.2-0.8); MONOCYTES % 9.6 % (4.4-11.3); NEUTROPHILS # (AUTO) 3.4 (2.1-6.9); NEUTROPHILS % 64.9 % (38.7-80.0); PLATELET COUNT 155 x10e3/uL (140-360); RED BLOOD COUNT 3.83 x10e6/uL (3.6-5.1); RED CELL DISTRIBUTION WIDTH 16.5 % (11.7-14.4); WHITE BLOOD COUNT 5.23 x10e3/uL (4.8-10.8)
[2024-03-19 06:19] LABS: ALBUMIN 2.8 g/dL (3.5-5.0); ALBUMIN/GLOBULIN RATIO 0.7 (0.8-2.0); ANION GAP 12.3 mmol/L (8-16); BILIRUBIN,TOTAL 0.3 mg/dL (0.2-1.2); CALCIUM 8.8 mg/dL (8.4-10.2); CREATININE, SERUM 0.64 mg/dL (0.57-1.11); POTASSIUM 4.3 mmol/L (3.5-5.1); TOTAL PROTEIN 6.6 g/dL (6.5-8.1)
[2024-03-19] MEDS ORDERED: METFORMIN HCL500 MG PO (07:41)
[2024-03-19] MEDS ORDERED: ROSUVASTATIN CAL5 MG (07:41)
[2024-03-19] MEDS ORDERED: CARVEDILOL12.5 MG PO (07:41)
[2024-03-19] MEDS ORDERED: SERTRALINE HCL50 MG PO (07:41)
[2024-03-19] MEDS ORDERED: LANSOPRAZOLE30 MG (07:41)
[2024-03-19] MEDS ORDERED: LANSOPRAZOLE15 MG (07:41)
[2024-03-19] MEDS ORDERED: OXYBUTYNIN CHLOR5 MG PO ×2 (07:41)
[2024-03-19] MEDS ORDERED: HUMALOG MI100 UNIT/2 SQ (07:41)
[2024-03-19] MEDS ORDERED: DIOVAN160 MG PO (07:41)
[2024-03-19] MEDS ORDERED: LEVOTHYROXINE50 MCG PO (07:41)
[2024-03-19] MEDS ORDERED: ACETYLCYST200 MG/1 M NEB (08:41)
[2024-03-19] MEDS ORDERED: IPRAT-ALBUT 0.5-3 ML INH (08:42)
[2024-03-19] MEDS ORDERED: DEXTROSE 50% SYRINGE 50 ML IV PRN (15:45)
[2024-03-19] MEDS: ALBUTEROL/IPRATROPIUM 3 ML NEB INH SCH (15:56)
[2024-03-19] MEDS ORDERED: NON-FORMULARY MEDICATION (Insulin Npl/Insulin Lispro* (Humalog Mix 75-25 Kwikpen*) 1 UNIT) SQ SCH (16:30)
[2024-03-19] MEDS: METFORMIN HCL 500 MG TAB GT SCH (17:05)
[2024-03-19] MEDS: CARVEDILOL 12.5 MG TAB GT SCH (17:06)
[2024-03-19] MEDS: VALSARTAN 160 MG TAB GT SCH (17:08)
[2024-03-19] MEDS: INSULIN LISPRO 100 UNIT/1 ML 3ML VIAL SQ SCH (17:46)
[2024-03-19] MEDS: ACETYLCYSTEINE 200 MG/ML 4 ML VIAL INH SCH (19:37)
[2024-03-19] MEDS: SERTRALINE HCL 50 MG TAB GT SCH (21:58)
[2024-03-19] MEDS: DOXAZOSIN MESYLATE 2 MG TAB GT SCH (21:59)
[2024-03-19] MEDS: ATORVASTATIN 20 MG TAB PEG SCH (21:59)
[2024-03-19] MEDS: OXYBUTYNIN CHLORIDE 5 MG TAB GT SCH (21:59)
[2024-03-19] MEDS: AMLODIPINE BESYLATE 10 MG TAB GT SCH (21:59)
[2024-03-20] VITALS (10 sets, daily range): BP systolic 114–138; BP diastolic 45–61; PULSE 70–85; RESP 17–20; TEMP 97.5–99.6; O2SAT 95–100
[2024-03-20 05:41] LABS: BASOPHILS % 0.4 % (0.0-1.0); EOSINOPHILS # (AUTO) 0.3 (0.0-0.4); EOSINOPHILS % 5.7 % (0.0-6.0); HEMOGLOBIN 10.4 g/dL (12.0-16.0); LYMPHOCYTES # (AUTO) 0.9 (1.0-3.2); LYMPHOCYTES % 18.5 % (18.0-39.1); MEAN CORPUSCULAR HEMOGLOBIN 26.8 pg (28-32); MEAN CORPUSCULAR HGB CONC 29.7 g/dL (31-35); MEAN CORPUSCULAR VOLUME 90.2 fL (81-99); MONOCYTES # (AUTO) 0.4 (0.2-0.8); MONOCYTES % 7.3 % (4.4-11.3); NEUTROPHILS # (AUTO) 3.3 (2.1-6.9); NEUTROPHILS % 67.7 % (38.7-80.0); PLATELET COUNT 146 x10e3/uL (140-360); RED BLOOD COUNT 3.88 x10e6/uL (3.6-5.1); RED CELL DISTRIBUTION WIDTH 16.2 % (11.7-14.4); RETICULOCYTE % 2.2 % (0.8-2.2); WHITE BLOOD COUNT 4.92 x10e3/uL (4.8-10.8)
[2024-03-20 06:05] LABS: ANION GAP 12.1 mmol/L (8-16); CREATININE, SERUM 0.57 mg/dL (0.57-1.11); POTASSIUM 4.1 mmol/L (3.5-5.1)
[2024-03-20 06:29] LABS: PHOSPHORUS 3.7 MG/DL (2.3-4.7)
[2024-03-20 06:48] LABS: FERRITIN 40.86 ng/mL (4.63-204.00)
[2024-03-20 08:12] LABS: FOLATE 32.4 ng/mL (7.0-15.4)
[2024-03-20] MEDS: MODAFINIL 100 MG TAB GT SCH (08:27)
[2024-03-20] MEDS ORDERED: LEVOTHYROXINE SODIUM 50 MCG TAB GT SCH (09:00)
[2024-03-20] MEDS: LEVOTHYROXINE SODIUM 50 MCG TAB GT SCH (09:07)
[2024-03-20] MEDS: FLUCONAZOLE 200 MG/100 ML 100 ML IV SCH (12:18)
[2024-03-21] VITALS (8 sets, daily range): BP systolic 132–154; BP diastolic 51–65; PULSE 64–75; RESP 18–21; TEMP 97.7–98.8; O2SAT 96–100
[2024-03-21] MEDS ORDERED: ACETAMIN/BUTALBITAL/CAFFEINE TAB PO PRN (11:30)
[2024-03-21] MEDS ORDERED: POLYETHYLENE GLYCOL 3350 17 GM PACK PO PRN (11:30)
[2024-03-21] MEDS: POLYETHYLENE GLYCOL 3350 17 GM PACK PO ONE (12:41)
[2024-03-21] MEDS: HYDROCODONE/APAP 7.5MG-325MG 1 EA TAB PO PRN (13:20)
[2024-03-21] MEDS: IRON SUCROSE 100 MG in SODIUM CHLORIDE 0.9% 100 ML IV SCH (17:52)
[2024-03-21] MEDS: DOCUSATE SODIUM 100 MG CAP PO SCH (17:53)
[2024-03-21] MEDS: HYDROGEN PEROXIDE 120 ML BTL TOP SCH (18:30)
[2024-03-22] VITALS (9 sets, daily range): BP systolic 118–172; BP diastolic 52–65; PULSE 63–85; RESP 16–21; TEMP 97.9–98.6; O2SAT 95–100
[2024-03-22] MEDS: ACETAMINOPHEN 325 MG TAB PO PRN (05:42)
[2024-03-22] MEDS ORDERED: HYDROGEN PEROXIDE 120 ML BTL TOP SCH (09:00)
[2024-03-22] MEDS: ENOXAPARIN 30 MG/0.3 ML SYR SC SCH (16:11)
[2024-03-23] VITALS (11 sets, daily range): BP systolic 119–147; BP diastolic 53–60; PULSE 64–74; RESP 16–20; TEMP 98–98.4; O2SAT 95–99
[2024-03-24] VITALS (8 sets, daily range): BP systolic 124–139; BP diastolic 54–65; PULSE 68–77; RESP 16–23; TEMP 98–98.9; O2SAT 96–100
[2024-03-24] MEDS: NYSTATIN 15 GM POWDER UD BTL TOP SCH (10:54)
[2024-03-24] MEDS ORDERED: DIFLUCAN100 MG PO (15:14)
== END 2024-03-24 19:13 | disposition home or self-care (01) | DRG 698 ==
LOC: ER 10:36 → ERHOLD 13:27 → MED/SURG2 15:26
PROVIDERS: ADMIT Internal Medicine; ATTEND Internal Medicine
DX: T83.518A Infection and inflammatory reaction due to other urinary catheter, initial encounter (principal); J69.0 Pneumonitis due to inhalation of food and vomit; N13.6 Pyonephrosis; I69.354 Hemiplegia and hemiparesis following cerebral infarction affecting left non-dominant side; J98.11 Atelectasis; Z16.24 Resistance to multiple antibiotics; Z68.41 Body mass index [BMI] 40.0-44.9, adult; R47.01 Aphasia; R62.7 Adult failure to thrive; I69.391 Dysphagia following cerebral infarction; Z66 Do not resuscitate; B96.5 Pseudomonas (aeruginosa) (mallei) (pseudomallei) as the cause of diseases classified elsewhere; B37.9 Candidiasis, unspecified; N30.91 Cystitis, unspecified with hematuria; I10 Essential (primary) hypertension; E78.49 Other hyperlipidemia; J44.9 Chronic obstructive pulmonary disease, unspecified; E66.9 Obesity, unspecified; R33.9 Retention of urine, unspecified; D50.9 Iron deficiency anemia, unspecified; N31.9 Neuromuscular dysfunction of bladder, unspecified; R53.81 Other malaise; Z79.4 Long term (current) use of insulin; Z79.84 Long term (current) use of oral hypoglycemic drugs; Z74.01 Bed confinement status; Z96.0 Presence of urogenital implants; Z93.1 Gastrostomy status; Z88.0 Allergy status to penicillin; Z88.1 Allergy status to other antibiotic agents; Z88.2 Allergy status to sulfonamides
CPT/HCPCS: 36415; 71045; 74176; 80048; 80053; 81001; 82550; 82607; 82728; 82746; 82948; 83540; 83735; 84100; 84466; 84484; 85025; 85045; 85610; 85730; 87086; 87186; 94799; 99252; 99285; J1450; J1650; J1756; J2020; J2185; J2270; J2405; J7030; J7050

== ENCOUNTER 2024-10-28 10:31 | Inpatient (IN) | payer MEDICARE ==
[~2024-10-28] VITALS: Ht 157.5 cm; Wt 99.8 kg
[~2024-10-28 10:31] MED LIST changes: +CARVEDILOL12.5 MG PO; +DIFLUCAN100 MG PO; +DIOVAN160 MG PO; +HUMALOG MI100 UNIT/2 SQ; +IPRAT-ALBUT 0.5-3 ML INH; +JARDIANCE25 MG PO; +LANSOPRAZOLE15 MG; +LANSOPRAZOLE30 MG; +LEVOTHYROXINE50 MCG PO; +METFORMIN HCL500 MG PO; +ROSUVASTATIN CAL5 MG PO; +SERTRALINE HCL50 MG PO
[2024-10-28] MEDS: MEROPENEM 1 GM in SODIUM CHLORIDE 0.9% 100 ML IV ONE (11:25)
[2024-10-28] MEDS: SODIUM CHLORIDE 0.9% 1000ML 1,000 ML IV STA (11:25)
[2024-10-28 11:35] LABS: BASOPHILS % 0.9 % (0.0-1.0); EOSINOPHILS % 4.8 % (0.0-6.0); LYMPHOCYTES % 17.4 % (18.0-39.1); MONOCYTES % 9.2 % (4.4-11.3); NEUTROPHILS % 67.4 % (38.7-80.0); RED CELL DISTRIBUTION WIDTH 14.6 % (11.7-14.4)
[2024-10-28 11:55] LABS: EST GLOMERULAR FILTRATION RATE 98.0 ML/MIN (>=60)
[2024-10-28 11:58] LABS: INR 0.91
[2024-10-28 12:31] LABS: LEUKOCYTE ESTERASE ,URINE LARGE (NEGATIVE); PROTEIN,URINE DIPSTICK >=300 (NEGATIVE); URINE UROBILINOGEN 0.2 mg/dL (0.2 - 1)
[2024-10-28 12:47] LABS: WBC,URINE (MAN) >50 /HPF (0-5)
[2024-10-28 12:48] LABS: EPITHELIAL CELLS,URINE MODERATE /LPF
[2024-10-28 14:00] VITALS: PULSE 67; RESP 18; TEMP 98.3
[2024-10-28 14:48] VITALS: BP 186/65; PULSE 72; RESP 16; TEMP 99.1; O2SAT 98
[2024-10-28] MEDS ORDERED: FORMOTEROL20 MCG/2 M NEB (15:12)
[2024-10-28] MEDS ORDERED: CYCLOSPORINE1 EACH OP (15:14)
[2024-10-28] MEDS ORDERED: NEOMYC-POLYM-DEX5 ML OP (15:15)
[2024-10-28] MEDS: SODIUM CHLORIDE 0.9% 1000ML 1,000 ML IV SCH (16:12)
[2024-10-28] MEDS: MEROPENEM 1 GM in SODIUM CHLORIDE 0.9% 100 ML IV SCH (18:37)
[2024-10-28 19:51] VITALS: BP 142/67; PULSE 71; RESP 17; TEMP 98; O2SAT 100
[2024-10-28 22:48] VITALS: BP 142/67; PULSE 71; RESP 18; TEMP 98; O2SAT 100
[2024-10-29] VITALS (9 sets, daily range): BP systolic 151–160; BP diastolic 62–77; PULSE 68–89; RESP 17–22; TEMP 97–98.9; O2SAT 94–100
[2024-10-29 08:19] LABS: BASOPHILS % 0.6 % (0.0-1.0); EOSINOPHILS % 3.2 % (0.0-6.0); LYMPHOCYTES % 9.8 % (18.0-39.1); MONOCYTES % 5.5 % (4.4-11.3); NEUTROPHILS % 80.6 % (38.7-80.0); RED CELL DISTRIBUTION WIDTH 14.7 % (11.7-14.4)
[2024-10-29 09:05] LABS: EST GLOMERULAR FILTRATION RATE 98.0 ML/MIN (>=60)
[2024-10-29] MEDS: Morphine 2mg Syringe 2 MG/ML SYR IV PRN (10:00)
[2024-10-29] MEDS: ONDANSETRON HCL INJ 2MG/ML 2ML 2 MG/ML VIAL IV PRN (10:00)
[2024-10-29] MEDS: ACETYLCYSTEINE 200 MG/ML 4 ML VIAL INH SCH (15:54)
[2024-10-29] MEDS: ALBUTEROL SULF 0.083% NEB SOLN 3 ML NEB NEB PRN (15:54)
[2024-10-29] MEDS: CARVEDILOL 12.5 MG TAB PO SCH (18:03)
[2024-10-29] MEDS: VALSARTAN 160 MG TAB PO SCH (18:03)
[2024-10-29] MEDS: OXYBUTYNIN CHLORIDE 5 MG TAB PO SCH (20:37)
[2024-10-29] MEDS: SERTRALINE HCL 50 MG TAB PO SCH (20:37)
[2024-10-30] VITALS (8 sets, daily range): BP systolic 125–164; BP diastolic 51–60; PULSE 62–79; RESP 16–20; TEMP 97.6–98.1; O2SAT 94–100
[2024-10-30] MEDS ORDERED: AMLODIPINE BESYLATE 10 MG TAB PO SCH (09:00)
[2024-10-30] MEDS ORDERED: DIGOXIN125 MCG PO (09:25)
[2024-10-30] MEDS: LEVOTHYROXINE SODIUM 25 MCG TABLET PO SCH (10:51)
[2024-10-30] MEDS: OXYBUTYNIN CHLORIDE 5 MG TAB PO SCH ×2 (12:45→21:02)
[2024-10-30] MEDS: DIGOXIN 0.125 MG TAB PO SCH (21:02)
[2024-10-30] MEDS: AMLODIPINE BESYLATE 10 MG TAB PO SCH (21:03)
[2024-10-31] VITALS (10 sets, daily range): BP systolic 129–160; BP diastolic 52–67; PULSE 59–73; RESP 16–20; TEMP 97.5–98.8; O2SAT 96–100
[2024-10-31] MEDS ORDERED: ACETAMINOPHEN 325 MG/10 ML UDC PEG PRN (21:45)
[2024-11-01] VITALS (11 sets, daily range): BP systolic 123–159; BP diastolic 43–66; PULSE 64–74; RESP 16–20; TEMP 97.7–98.6; O2SAT 97–100
[2024-11-01 06:44] LABS: BASOPHILS % 0.9 % (0.0-1.0); EOSINOPHILS % 6.1 % (0.0-6.0); LYMPHOCYTES % 22.7 % (18.0-39.1); MONOCYTES % 8.7 % (4.4-11.3); NEUTROPHILS % 61.4 % (38.7-80.0); RED CELL DISTRIBUTION WIDTH 14.5 % (11.7-14.4)
[2024-11-01 07:26] LABS: EST GLOMERULAR FILTRATION RATE 101.0 ML/MIN (>=60); PHOSPHORUS 2.8 MG/DL (2.3-4.7)
[2024-11-01 14:26] LABS: LEUKOCYTE ESTERASE ,URINE TRACE (NEGATIVE); PROTEIN,URINE DIPSTICK 2+ (NEGATIVE)
[2024-11-01 14:27] LABS: EPITHELIAL CELLS,URINE FEW /LPF; URINE UROBILINOGEN 0.2 mg/dL (0.2 - 1); WBC,URINE (MAN) >50 /HPF (0-5)
[2024-11-01] MEDS: METFORMIN HCL 500 MG TAB PO SCH (17:25)
[2024-11-01] MEDS: FORMOTEROL FUMARATE 20 MCG/2 ML VIAL IH SCH (19:00)
[2024-11-01] MEDS: DOXAZOSIN MESYLATE 2 MG TAB PO SCH (22:22)
[2024-11-01] MEDS: CRESTOR 10MG PO SCH (22:22)
[2024-11-02] VITALS (12 sets, daily range): BP systolic 138–160; BP diastolic 50–67; PULSE 64–87; RESP 16–20; TEMP 97.5–98.6; O2SAT 96–100
[2024-11-02] MEDS: EMPAGLIFLOZIN 10 MG TABLET PO SCH (09:38)
[2024-11-02] MEDS: MODAFINIL 100 MG TAB PO SCH (09:38)
[2024-11-02] MEDS: NYSTATIN 100,000 UNITS/GM CRM 30GM TUBE TOP SCH (09:55)
[2024-11-02] MEDS: HYDROCODONE/APAP 5MG-325MG TAB PO PRN (15:03)
[2024-11-02] MEDS: CRESTOR 10MG PO ONE (22:41)
[2024-11-02] MEDS: AMLODIPINE BESYLATE 10 MG TAB PEG ONE (22:45)
[2024-11-02] MEDS: DOXAZOSIN MESYLATE 2 MG TAB PEG ONE (22:46)
[2024-11-02] MEDS: DIGOXIN 0.125 MG TAB PEG ONE (22:46)
[2024-11-02] MEDS: SERTRALINE HCL 50 MG TAB PEG ONE (22:48)
[2024-11-02] MEDS: OXYBUTYNIN CHLORIDE 5 MG TAB PEG ONE (22:48)
[2024-11-03] VITALS (8 sets, daily range): BP systolic 123–150; BP diastolic 56–59; PULSE 63–73; RESP 18–19; TEMP 97.7–98.7; O2SAT 93–100
[2024-11-03] MEDS: CARVEDILOL 12.5 MG TAB PEG ONE (00:45)
[2024-11-03 06:10] LABS: BASOPHILS % 0.7 % (0.0-1.0); EOSINOPHILS % 5.2 % (0.0-6.0); LYMPHOCYTES % 17.0 % (18.0-39.1); MONOCYTES % 7.4 % (4.4-11.3); NEUTROPHILS % 69.3 % (38.7-80.0); RED CELL DISTRIBUTION WIDTH 14.0 % (11.7-14.4)
[2024-11-03 06:52] LABS: EST GLOMERULAR FILTRATION RATE 101.0 ML/MIN (>=60)
[2024-11-03] MEDS: MODAFINIL 100 MG TAB PEG SCH (09:16)
[2024-11-03] MEDS: VALSARTAN 160 MG TAB PEG SCH (09:17)
[2024-11-03] MEDS: METFORMIN HCL 500 MG TAB PEG SCH (09:17)
[2024-11-03] MEDS: OXYBUTYNIN CHLORIDE 5 MG TAB PEG SCH ×2 (09:18→22:33)
[2024-11-03] MEDS: CARVEDILOL 12.5 MG TAB PEG SCH (09:19)
[2024-11-03] MEDS: HYDROCODONE/APAP 5MG-325MG TAB PEG PRN (10:10)
[2024-11-03] MEDS: FLUCONAZOLE 100 MG TAB PO SCH (12:18)
[2024-11-03] MEDS ORDERED: MEROPENEM 1 GM in SODIUM CHLORIDE 0.9% 100 ML IV SCH (14:00)
[2024-11-03] MEDS: NYSTATIN 15 GM POWDER UD BTL TOP SCH (17:47)
[2024-11-03] MEDS: SERTRALINE HCL 50 MG TAB PEG SCH (22:30)
[2024-11-03] MEDS: DOXAZOSIN MESYLATE 2 MG TAB PEG SCH (22:31)
[2024-11-03] MEDS: AMLODIPINE BESYLATE 10 MG TAB PEG SCH (22:33)
[2024-11-03] MEDS: DIGOXIN 0.125 MG TAB PEG SCH (22:34)
[2024-11-04] VITALS (8 sets, daily range): BP systolic 136–147; BP diastolic 57–72; PULSE 66–74; RESP 16–18; TEMP 97.6–98.8; O2SAT 95–98
[2024-11-04 06:42] LABS: EST GLOMERULAR FILTRATION RATE 101.0 ML/MIN (>=60)
[2024-11-04] MEDS ORDERED: DIFLUCAN100 MG PO (14:47)
[2024-11-04] MEDS: LACTULOSE SYRUP 20 GM/30 ML UDC PO ONE (15:22)
== END 2024-11-04 17:19 | disposition home or self-care (01) | DRG 699 ==
LOC: ER 10:59 → ERHOLD 12:57 → MED/SURG2 15:19
PROVIDERS: ADMIT Internal Medicine; ATTEND Internal Medicine
PROC: 0T2BX0Z Change Drainage Device in Bladder, External Approach (ICD-10-PCS; 2024-11-02)
PROC: 02HV33Z Insertion of Infusion Device into Superior Vena Cava, Percutaneous Approach (ICD-10-PCS; principal; 2024-11-03)
DX: T83.518A Infection and inflammatory reaction due to other urinary catheter, initial encounter (principal); N39.0 Urinary tract infection, site not specified; Z16.12 Extended spectrum beta lactamase (ESBL) resistance; Z68.41 Body mass index [BMI] 40.0-44.9, adult; E66.9 Obesity, unspecified; T83.098A Other mechanical complication of other urinary catheter, initial encounter; T83.83XA Hemorrhage due to genitourinary prosthetic devices, implants and grafts, initial encounter; I69.322 Dysarthria following cerebral infarction; E11.9 Type 2 diabetes mellitus without complications; B96.4 Proteus (mirabilis) (morganii) as the cause of diseases classified elsewhere; B96.20 Unspecified Escherichia coli [E. coli] as the cause of diseases classified elsewhere; E03.9 Hypothyroidism, unspecified; D64.9 Anemia, unspecified; I10 Essential (primary) hypertension; K59.00 Constipation, unspecified; N31.9 Neuromuscular dysfunction of bladder, unspecified; R33.8 Other retention of urine; R31.9 Hematuria, unspecified; K21.9 Gastro-esophageal reflux disease without esophagitis; Y84.6 Urinary catheterization as the cause of abnormal reaction of the patient, or of later complication, without mention of misadventure at the time of the procedure; Z74.01 Bed confinement status; Z79.02 Long term (current) use of antithrombotics/antiplatelets; Z79.4 Long term (current) use of insulin; Z79.84 Long term (current) use of oral hypoglycemic drugs; Z79.890 Hormone replacement therapy; Z96.0 Presence of urogenital implants; Z87.440 Personal history of urinary (tract) infections; Z88.0 Allergy status to penicillin; Z88.1 Allergy status to other antibiotic agents; Z88.2 Allergy status to sulfonamides
CPT/HCPCS: 36415; 36569; 74176; 80048; 80053; 81001; 82948; 83735; 84100; 84484; 85025; 85610; 85730; 87040; 87086; 87186; 93005; 94640; 94799; 99252; 99285; J1335; J2185; J2270; J2405; J7030; J7050